=== PATIENT | female | born 1960 | race Caucasian/White ===

== ENCOUNTER 2020-07-28 09:40 | Emergency (ER) | payer BC ==
[~2020-07-28] VITALS: Ht 162.6 cm; Wt 89.0 kg
--- NOTE | 2020-07-28 10:12 | PHYS DOC ---
Past History Past Medical History: Diabetes, High Cholesterol, Hypertension Additional Past Medical Histor: Graves disease, Hashimotos, Endometrial cancer. Past Surgical History: Hysterectomy, Other Additional Past Surgical Histo: Knee scope Alcohol Use: Occasionally Adult General Chief Complaint Chief Complaint: FLANK PAIN HPI HPI Patient is a 60-year-old female who presents for right flank pain. Onset was this morning while at work without any known inciting event or trauma. Patient reports being asymptomatic, waking up and having typical breakfast consisting of cereal and urban. Patient transported herself to work and while at work, started developing right-sided flank pain located inferior to right rib cage without radiation. Associated symptoms include generalized malaise, nausea, times "8-10" episodes of nonbloody nonbilious emesis and looser stools than usual. Denies any fever, lightheadedness, dizziness, falls or trauma, no loss of consciousness, no chest pain, no shortness of breath, no urinary symptoms. States she has no known COVID-19 contact. Ate popcorn yesterday evening prior to bed, last full meal was baked chicken and potatoes eaten approximately 14 hours prior to arrival, states she has no concern about the baked chicken being cooked properly. Patient took all daily medications this morning but reports she is unsure if she subsequently vomited them up Review of Systems Review of Systems Fourteen body systems of review of systems have been reviewed. See HPI for pertinent positives and negative responses, other mesa all other systems are negative, non-pertinent or non-contributory Current Medications Current Medications Current Medications Medications (Trade) Dose Ordered Sig/Steffen Start Time Stop Time Status Last Admin Dose Admin Info (Do NOT chart on this entry -- for MONITORING) 1 each PRN DAILY PRN 07/28/20 14:30 07/30/20 14:29 Iohexol (Omnipaque 300 Mg/ml) 75 ml 1X ONCE 07/28/20 14:15 07/28/20 14:17 DC Ondansetron HCl (Zofran) 4 mg 1X ONCE 07/28/20 10:15 07/28/20 10:26 DC 07/28/20 10:22 4 MG Sodium Chloride 1,000 ml @ 1,000 mls/hr 1X ONCE 07/28/20 12:00 07/28/20 12:59 DC 07/28/20 12:20 1,000 MLS/HR Allergies Allergies Allergies Coded Allergies Type Severity Reaction Last Updated Verified No Known Drug Allergies 07/28/20 No Physical Exam Physical Exam Constitutional: Well developed, well nourished, no acute distress, non-toxic appearance. Ambulatory from waiting room to ER room without issues HENT: Normocephalic, atraumatic, bilateral external ears normal, oropharynx moist, no oral exudates, nose normal. Eyes: PERRLA, EOMI, conjunctiva normal, no discharge. Neck: Normal range of motion, no tenderness, supple, no stridor. Cardiovascular: Heart rate regular, sinus rhythm, no murmurs rubs or gallops Lungs & Thorax: Bilateral breath sounds clear to auscultation Abdomen: Bowel sounds normal, soft, generalized right flank pain without any guarding or rebound, no masses, no pulsatile masses. Nonsurgical abdomen, no peritoneal signs Skin: Warm, dry, no erythema, no rash. Back: No tenderness, right CVA tenderness. Extremities: No tenderness, no cyanosis, no clubbing, ROM intact, no edema. Neurologic: Alert and oriented X 3, grossly normal motor & sensory function, no focal deficits noted. Psychologic: Anxious affect and mood, judgment normal Current Patient Data Vital Signs Vital Signs Date Time Temp Pulse Resp B/P (MAP) Pulse Ox O2 Delivery O2 Flow Rate FiO2 07/28/20 15:55 104 20 149/82 (104) 98 07/28/20 15:20 96 18 156/77 (103) 95 07/28/20 14:20 100 18 138/79 (98) 96 07/28/20 13:20 99 16 145/75 (98) 97 07/28/20 11:20 98 20 147/74 (98) 97 07/28/20 09:53 97.5 120 20 170/95 (120) 96 Lab Results Laboratory Tests Test 07/28/20 10:10 07/28/20 13:10 White Blood Count 17.4 x10^3/uL Red Blood Count 5.20 x10^6/uL Hemoglobin 14.5 g/dL Hematocrit 44.5 % Mean Corpuscular Volume 86 fL Mean Corpuscular Hemoglobin 28 pg Mean Corpuscular Hemoglobin Concent 33 g/dL Red Cell Distribution Width 14.6 % Platelet Count 357 x10^3/uL Neutrophils (%) (Auto) 90 % Lymphocytes (%) (Auto) 5 % Monocytes (%) (Auto) 3 % Eosinophils (%) (Auto) 2 % Basophils (%) (Auto) 1 % Neutrophils # (Auto) 15.7 x10^3uL Lymphocytes # (Auto) 0.9 x10^3/uL Monocytes # (Auto) 0.5 x10^3/uL Eosinophils # (Auto) 0.3 x10^3/uL Basophils # (Auto) 0.1 x10^3/uL Lymphocytes % 1 % Atypical Lymphocytes % (Manual) 15 % Eosinophils % 1 % Basophils % 2 % Other Cells % 81 % Platelet Estimate Adequate Sodium Level 138 mmol/L Potassium Level 3.6 mmol/L Chloride Level 101 mmol/L Carbon Dioxide Level 24 mmol/L Anion Gap 13 Blood Urea Nitrogen 28 mg/dL Creatinine 1.5 mg/dL Estimated GFR (Cockcroft-Gault) 35.3 BUN/Creatinine Ratio 19 Glucose Level 242 mg/dL Lactic Acid Level 3.0 mmol/L Calcium Level 9.9 mg/dL Total Bilirubin 0.5 mg/dL Aspartate Amino Transf (AST/SGOT) 18 U/L Alanine Aminotransferase (ALT/SGPT) 28 U/L Alkaline Phosphatase 72 U/L Creatine Kinase 71 U/L Troponin I Quantitative < 0.017 ng/mL Total Protein 8.5 g/dL Albumin 4.2 g/dL Albumin/Globulin Ratio 1.0 Lipase 188 U/L Urine Collection Type Unknown Urine Color Yellow Urine Clarity Clear Urine pH 5.0 Urine Specific [place] 1.020 Urine Protein Neg Urine Glucose (UA) Neg mg/dL Urine Ketones (Stick) 40 mg/dL Urine Blood Neg Urine Nitrite Neg Urine Bilirubin Neg Urine Urobilinogen Dipstick 0.2 mg/dL Urine Leukocyte Esterase Neg Urine RBC Occ /HPF Urine WBC Occ /HPF Urine Squamous Epithelial Cells Mod /LPF Urine Bacteria Few /HPF Current Medications Medications (Trade) Dose Ordered Sig/Steffen Route PRN Reason Start Time Stop Time Status Last Admin Dose Admin Sodium Chloride 1,000 ml @ 1,000 mls/hr Q1H IV 07/28/20 10:15 07/28/20 11:14 DC 07/28/20 10:20 1,000 MLS/HR Ondansetron HCl (Zofran) 4 mg 1X ONCE IVP 07/28/20 10:15 07/28/20 10:26 DC 07/28/20 10:22 4 MG Sodium Chloride 1,000 ml @ 1,000 mls/hr 1X ONCE IV 07/28/20 12:00 07/28/20 12:59 DC 07/28/20 12:20 1,000 MLS/HR Iohexol (Omnipaque 300 Mg/ml) 75 ml 1X ONCE IV 07/28/20 14:15 07/28/20 14:17 DC Info (Do NOT chart on this entry -- for MONITORING) 1 each PRN DAILY PRN MC SEE COMMENTS 07/28/20 14:30 07/30/20 14:29 EKG EKG EKG ordered and interpreted by myself at 1027 hrs. as sinus rhythm at 117 bpm, QTC 507 otherwise intervals unremarkable, left axis deviation, incomplete right bundle branch block without any obvious ischemic findings, no STEMI Radiology/Procedures Radiology/Procedures XR CHEST 1V History: Reason: rt flank pain / Spl. Instructions: / History: Comparison: None. Findings: Low lung volumes. Linear bibasilar opacities. No pleural effusion. No pneumothorax. Normal heart size. Impression: 1. Low lung lines with linear bibasilar opacities, likely atelectasis. Electronically signed by: Maxwell Brooke DO (07/28/2020 10:44 AM) [id number] EXAM: Abdomen and pelvis CT without intravenous contrast. HISTORY: Pain. TECHNIQUE: Computed tomographic images of the abdomen and pelvis were obtained without contrast. Multiplanar reformatting was performed. *One or more of the following individualized dose reduction techniques were utilized for this examination: 1. Automated exposure control. 2. Adjustment of the mA and/or kV according to patient size. 3. Use of iterative reconstruction technique. COMPARISON: None. FINDINGS: Evaluation of the lower thorax demonstrates posterior dependent atelectasis. There are 3 mm and 4 mm nodules within the lateral left lower lobe (series 2, images 18 and 20). The heart is normal in size. There is hepatosplenomegaly and hepatic steatosis. No suspicious hepatic lesion is seen. The gallbladder, pancreas, spleen, stomach and adrenal glands are unremarkable. There is no suspicious renal lesion or hydronephrosis. There is no appendicitis. There is no bowel obstruction. The aorta is normal in caliber. There is no lymphadenopathy. There is a fat- containing infraumbilical hernia. The hernia defect measures 1.9 cm and the hernia sacs extend to the right and left of midline measuring 3.9 cm and 2.0 cm. There is also a tiny suprapubic fat-containing hernia to left of midline and tiny fat-containing left inguinal hernia. The bladder is unremarkable. The uterus is absent. There are degenerative changes throughout the spine. There is no acute or suspicious osseous lesion. IMPRESSION: 1. No acute abdominal or pelvic finding. 2. Hepatosplenomegaly and hepatic steatosis. 3. Small fat-containing inferior ventral abdominal wall and suprapubic hernias and tiny fat-containing left inguinal hernia. 4. Tiny left lower lobe pulmonary nodules measuring up to 4 mm. Follow-up can be performed in one year if there are risk factors for pulmonary neoplasm. Electronically signed by: Ban Law MD (07/28/2020 2:41 PM) [id number] Heart Score HEART Score for Chest Pain: HEART Score for Chest Pain Response (Comments) Value History Slighlty/Non-Suspicious 0 ECG Normal 0 Age >45 - < 65 1 Risk Factors >3 Risk Factors or Hx CAD 2 Troponin < Normal Limit 0 Total 3 Risk Factors: Risk Factors: DM, Current or recent (<one month) smoker, HTN, HLP, family history of CAD, obesity. Risk Scores: Risk Factors: DM, Current or recent (<one month) smoker, HTN, HLP, family histo ry of CAD, obesity. Course & Med Decision Making Course & Med Decision Making Discussed with the patient all findings and diagnostic testing. I discussed most likely diagnosis of likely transient/self-limiting abdominal illness such as gastroenteritis versus viral syndrome. Patient feeling "much better" after ER intervention today. Patient has no known exposure to COVID-19 but requested to be swabbed, I felt this was appropriate and swabbed patient with results pending. Educated patient on need for continued supportive care at home and self quarantine setting until results are communicated to her. I advised her to call primary care physician to review today's ER visit and discuss need for outpatient reevaluation when safe to do so. I did disclose this might be an acute presentation more concerning pathology and so, strict return precautions were also discussed at length with good understanding by patient. Patient voiced understanding and agreement with the plan. Patient knows to come back for repeat evaluation if concerning signs or symptoms present prior to outpatient follow- up. Hemodynamically stable, ambulatory and well-appearing at time of disposition. Dragon Disclaimer Dragon Disclaimer This electronic medical record was generated, in whole or in part, using a voice recognition dictation system. Departure Departure: Impression: Primary Impression: Nausea vomiting and diarrhea Additional Impression: Person under investigation for COVID-19 Disposition: 01 DC HOME SELF CARE/HOMELESS Condition: IMPROVED Referrals: ARACELI SHERMAN MD (PCP) Patient Instructions: Nausea and Vomiting, Viral Syndrome Additional Instructions: You were seen for nausea, vomit and diarrhea. You most likely have a viral illness which should resolve in the next few days to a week. Your physical exam was reassuring. Your chest x-ray was normal. We tested you for COVID-19 but this test does not come back for 1 to 2 days. In the meantime you need to quarantine yourself at home away from all other individuals, especially those who are elderly or have any other chronic health issues or an immunocompromised status. If your test does come back positive you need to quarantine yourself for 10 days until symptom-free. You should return to the ED if you develop abdominal pain, fever > 100.3, black/bloody stools, black/bloody vomiting, cannot keep water down, or any other new or concerning symptoms. Problem Qualifiers RYLEY TYLER DO Jul 28, 2020 10:12
[2020-07-28] MEDS ORDERED: IV NORMAL SALINE 1,000ML 1,000 ML IV SCH (10:15)
[2020-07-28] MEDS ORDERED: ONDANSETRON PF 4 MG/2 ML VIAL. IVP ONE (10:15)
[2020-07-28 10:33] LABS: BASO # 0.1 x10^3/uL (0.0-0.2); BASO % 1 % (0-3); EOS # 0.3 x10^3/uL (0.0-0.7); EOS % 2 % (0-3); HEMATOCRIT 44.5 % (36.0-47.0); HEMOGLOBIN 14.5 g/dL (12.0-15.5); LYMPH # 0.9 x10^3/uL (1.0-4.8); LYMPH % 5 % (24-48); MEAN CORPUSCULAR HEMOGLOBIN 28 pg (25-35); MEAN CORPUSCULAR HGB CONC 33 g/dL (31-37); MEAN CORPUSCULAR VOLUME 86 fL (79-100); MONO # 0.5 x10^3/uL (0.0-1.1); MONO % 3 % (0-9); NEUT # 15.7 x10^3uL (1.8-7.7); NEUT % 90 % (31-73); PLATELET COUNT 357 x10^3/uL (140-400); RED CELL DISTRIBUTION WIDTH 14.6 % (11.5-14.5); WHITE BLOOD COUNT 17.4 x10^3/uL (4.0-11.0)
[2020-07-28 10:45] LABS: CALCIUM 9.9 mg/dL (8.5-10.1); CREATININE 1.5 mg/dL (0.6-1.0); GFR 35.3; POTASSIUM 3.6 mmol/L (3.5-5.1)
--- NOTE | 2020-07-28 10:46 | RAD ---
XR CHEST 1V History: Reason: rt flank pain / Spl. Instructions: / History: Comparison: None. Findings: Low lung volumes. Linear bibasilar opacities. No pleural effusion. No pneumothorax. Normal heart size . Impression: 1. Low lung lines with linear bibasilar opacities, likely atelectasis. Electronically signed by: Maxwell Brooke DO (07/28/2020 10:44 AM) [id number]
[2020-07-28 10:51] LABS: ALBUMIN 4.2 g/dL (3.4-5.0); TOTAL PROTEIN 8.5 g/dL (6.4-8.2)
[2020-07-28 10:52] LABS: TOTAL BILIRUBIN 0.5 mg/dL (0.2-1.0)
[2020-07-28 11:42] LABS: % ATYL 15 % (0-0); % BASOS 2 % (0-3); % EOS 1 % (0-5); % LYMPHS 1 % (24-48); % OTHERS 81 % (0-0)
[2020-07-28 11:44] LABS: PLT ESTIMATE ADEQUATE (ADEQUATE)
[2020-07-28] MEDS ORDERED: IV NORMAL SALINE 1,000ML 1,000 ML IV ONE (12:00)
[2020-07-28 13:44] LABS: BILIRUBIN,URINE NEG (NEG); CLARITY,URINE CLEAR; COLOR,URINE YELLOW; GLUCOSE,URINE NEG (NEG)
[2020-07-28 13:45] LABS: BACTERIA,URINE FEW /HPF (0-FEW); NITRITE,URINE NEG (NEG); RBC,URINE OCC /HPF (0-2); SQUAMOUS EPITHELIAL CELL,UR MOD /LPF; UROBILINOGEN,URINE 0.2 mg/dL (0.2 mg/dL); WBC,URINE OCC /HPF (0-4)
[2020-07-28] MEDS ORDERED: IOHEXOL 300 MG/ML 75 ML VIAL. IV ONE (14:15)
[2020-07-28] MEDS ORDERED: CONTRAST GIVEN. MC PRN (14:30)
--- NOTE | 2020-07-28 14:43 | RAD ---
EXAM: Abdomen and pelvis CT without intravenous contrast. HISTORY: Pain. TECHNIQUE: Computed tomographic images of the abdomen and pelvis were obtained without contrast. Mult iplanar reformatting was performed. *One or more of the following individualized dose reduction techniques were utilized for this examina tion: 1. Automated exposure control. 2. Adjustment of the mA and/or kV according to patient size. 3. Use of iterative reconstruction technique. COMPARISON: None. FINDINGS: Evaluation of the lower thorax demonstrates posterior dependent atelectasis. There are 3 mm and 4 mm nodules within the lateral left lower lobe (series 2, images 18 and 20). The heart is ace l in size. There is hepatosplenomegaly and hepatic steatosis. No suspicious hepatic lesion is seen. The gallblad mireya, pancreas, spleen, stomach and adrenal glands are unremarkable. There is no suspicious renal lesi on or hydronephrosis. There is no appendicitis. There is no bowel obstruction. The aorta is normal in caliber. There is no lymphadenopathy. There is a fat-containing infraumbilical hernia. The hernia defect measures 1.9 cm and the hernia sacs extend to the right and left of midlin e measuring 3.9 cm and 2.0 cm. There is also a tiny suprapubic fat-containing hernia to left of midli ne and tiny fat-containing left inguinal hernia. The bladder is unremarkable. The uterus is absent. There are degenerative changes throughout the spin e. There is no acute or suspicious osseous lesion. IMPRESSION: 1. No acute abdominal or pelvic finding. 2. Hepatosplenomegaly and hepatic steatosis. 3. Small fat-containing inferior ventral abdominal wall and suprapubic hernias and tiny fat-containin g left inguinal hernia. 4. Tiny left lower lobe pulmonary nodules measuring up to 4 mm. Follow-up can be performed in one yea r if there are risk factors for pulmonary neoplasm. Electronically signed by: Ban Law MD (07/28/2020 2:41 PM) [id number]
--- NOTE | 2020-07-28 15:01 | EKG ---
[address] [address] Test Date: 2020-07-28 Test Time: 10:23:14 Pat Name: CHRISTIANO CONNOR Department: Room: Gender: F [employer]: JUSTINA : 1960 Requested By: RYLEY TYLER Order Number: [id number] Reading MD: Measurements Intervals [place] Rate: 117 P: -59 NC: 102 QRS: -18 QRSD: 82 T: 43 QT: 360 QTc: 507 Interpretive Statements SINUS TACHYCARDIA LEFT ATRIAL ABNORMALITY LEFTWARD AXIS R-S TRANSITION ZONE IN V LEADS DISPLACED TO THE LEFT INCOMPLETE RIGHT BUNDLE BRANCH BLOCK ABNORMAL ECG RI6.02 No previous ECG available for comparison
[2020-07-28 15:55] VITALS: BP 149/82
== END 2020-07-28 15:33 | disposition home or self-care (01) ==
LOC: ER 09:40
DX: R11.2 Nausea with vomiting, unspecified (principal); R19.7 Diarrhea, unspecified; R10.84 Generalized abdominal pain; E11.9 Type 2 diabetes mellitus without complications; E78.00 Pure hypercholesterolemia, unspecified; I10 Essential (primary) hypertension; Z20.828 Contact with and (suspected) exposure to other viral communicable diseases; Z90.710 Acquired absence of both cervix and uterus
CPT/HCPCS: 36415; 71045; 74176; 80053; 81001; 82550; 83605; 83690; 84484; 85007; 85025; 87040; 93005; 96361; 96374; 99285; J2405; J7030; U0003